=== PATIENT | female | born 1930 | race Asian ===

== ENCOUNTER → 2017-07-21 | Outpatient (CLI) | payer MEDICARE, MEDICAID ==
[~2017-07-21] VITALS: Ht 160 cm; Wt 66.0 kg
[~2017-07-21] MED LIST: ACET-66 PO; AMLO-511 PO; ASPI-825 PO; BENA20TA3 PO; CELE100 PO; METF10002 PO; OSCAL PO; TIMO5DRO7 OP; [UNRECOGNIZED DRUG - CODE] IV
[2017-07-21 13:56] VITALS: BP 116/63
== END | disposition home or self-care (01) ==
LOC: SRCNTR 13:49
PROVIDERS: ATTEND Internal Medicine
DX: I13.0 Hypertensive heart and chronic kidney disease with heart failure and stage 1 through stage 4 chronic kidney disease, or unspecified chronic kidney disease (principal); E11.22 Type 2 diabetes mellitus with diabetic chronic kidney disease; N18.3 Chronic kidney disease, stage 3 (moderate); I50.33 Acute on chronic diastolic (congestive) heart failure; I48.0 Paroxysmal atrial fibrillation; E78.5 Hyperlipidemia, unspecified; E66.9 Obesity, unspecified; J96.00 Acute respiratory failure, unspecified whether with hypoxia or hypercapnia; J81.1 Chronic pulmonary edema; Z79.82 Long term (current) use of aspirin
CPT/HCPCS: G0463